=== PATIENT | male | born 1980 | race Caucasian/White ===

== ENCOUNTER 2018-04-19 11:43 | Emergency (ER) | payer OTHER ==
[2018-04-19 13:15] LABS: Protime INR 1.12
[2018-04-19 13:24] LABS: ALT/SGPT 265 U/L (12-78); AST/SGOT 112 U/L (15-37); Albumin 4.2 g/dL (3.4-5.0); Alkaline Phosphatase 53 U/L (45-117); BUN Blood Urea Nitrogen 12 mg/dL (7-18); Bicarbonate 28 mmol/L (21-32); Bilirubin Direct 0.2 mg/dL (0-0.2); Bilirubin Total 0.6 mg/dL (0.2-1.0); Glucose Level 94 mg/dL (74-106); Magnesium 2.4 mg/dL (1.8-2.4); NT PRO-BNP 128 pg/mL (<125); Potassium 3.8 mmol/L (3.5-5.1); Protein, Total 7.9 g/dL (6.4-8.2); Sodium Level 141 mmol/L (136-145); Troponin (Emerg Dept Use Only) < 0.02 ng/mL (0.0-0.045)
--- NOTE | 2018-04-19 13:28 | RAD REPORT ---
EXAM DESCRIPTION: Pa[facility] Single View04/19/2018 1:01 pm CLINICAL HISTORY: Chest pain COMPARISON: none FINDINGS: The lungs appear clear of acute infiltrate. The heart is normal size IMPRESSION: No acute abnormalities displayed
[2018-04-19 13:30] LABS: Absolute Lymphocytes (CBC) 1.4 K/uL (0.7-4.9); Absolute Monocytes 0.8 K/uL (0.1-1.3); Absolute Neutrophil 4.4 K/uL (1.8-8.0); Eosinophils % 1.8 % (0-4.4); Hematocrit 47.7 % (39.6-49.0); MPV 9.5 fL (7.6-11.3); Monocytes % 11.5 % (3.3-12.3); RBC Red Blood Cell Count 5.24 M/uL (4.33-5.43)
--- NOTE | 2018-04-19 14:17 | ER ---
Nurse's Notes [facility] Name: Chris Russ Jr Age: 37 yrs Sex: Male : 1980 Arrival Date: 04/19/2018 Time: 11:46 Bed 17 Private MD: Diagnosis: Essential (primary) hypertension;Tobacco abuse counseling;Tobacco use Presentation: 04/19 11:46 Presenting complaint: Patient states: i think my BP is high and i feel tingly on both hj arms; it started around ; went to [facility] a minute ago and it was a 150/100; denies headache, denies N/V; denies chest pain;. Transition of care: patient was not received from another setting of care. Onset of symptoms was April 19, 2018. Risk Assessment: Do you want to hurt yourself or someone else? Patient reports no desire to harm self or others. Initial Sepsis Screen: Does the patient meet any 2 criteria? No. Patient's initial sepsis screen is negative. Does the patient have a suspected source of infection? No. Patient's initial sepsis screen is negative. Care prior to arrival: None. 11:46 Method Of Arrival: Ambulatory 11:46 Acuity: HERIBERTO 3 hj Triage Assessment: 11:48 General: Appears in no apparent distress. uncomfortable, Behavior is calm, cooperative, hj appropriate for age. Pain: Denies pain. Historical: - Allergies: 11:48 No Known Allergies; hj - Home Meds: 11:48 None [Active]; hj - PMHx: 11:48 None; hj - PSHx: 11:48 None; hj - Immunization history:: Adult Immunizations not up to date. - Social history:: Smoking status: Patient uses tobacco products, Patient uses alcohol. - Ebola Screening: : Patient negative for fever greater than or equal to 101.5 degrees Fahrenheit, and additional compatible Ebola Virus Disease symptoms Patient denies exposure to infectious person Patient denies travel to an Ebola-affected area in the 21 days before illness onset. - Family history:: not pertinent. Screenin:49 Abuse screen: Denies threats or abuse. Denies injuries from another. Nutritional hj screening: No deficits noted. Tuberculosis screening: No symptoms or risk factors identified. Fall Risk None identified. Assessment: 12:20 General: Appears in no apparent distress. Behavior is calm, cooperative. Pain: Denies hb pain. Neuro: Level of Consciousness is awake, alert, obeys commands, Oriented to person, place, time, situation. Cardiovascular: Heart tones S1 S2 present Capillary refill < 3 seconds Patient's skin is warm and dry. Respiratory: Airway is patent Trachea midline Respiratory effort is even, unlabored, Respiratory pattern is regular, symmetrical, Breath sounds are clear bilaterally. GI: No signs and/or symptoms were reported involving the gastrointestinal system. : No signs and/or symptoms were reported regarding the genitourinary system. EENT: No signs and/or symptoms were reported regarding the EENT system. Derm: Skin is intact, is healthy with good turgor. Musculoskeletal: No signs and/or symptoms reported regarding the musculoskeletal system. 13:00 Reassessment: Patient appears in no apparent distress at this time. Patient and/or hb family updated on plan of care and expected duration. Pain level reassessed. Patient is alert, oriented x 3, equal unlabored respirations, skin warm/dry/pink. Patient denies pain at this time. 13:51 Reassessment: Patient appears in no apparent distress at this time. No changes from previously documented assessment. Patient and/or family updated on plan of care and expected duration. Pain level reassessed. Patient is alert, oriented x 3, equal unlabored respirations, skin warm/dry/pink. Vital Signs: 11:49 BP 144 / 106; Pulse 95; Resp 18; Temp 97.8(TE); Pulse Ox 98% on R/A; Weight 79.38 kg; Height 6 ft. 0 in. (182.88 cm); Pain 0/10; 12:45 BP 148 / 98; Pulse 88; Resp 16; Pulse Ox 100% on R/A; Pain 0/10; hb 11:49 Body Mass Index 23.73 (79.38 kg, 182.88 cm) ED Course: 11:46 Patient arrived in ED. rg4 11:47 Triage completed. 11:49 Arm band placed on left wrist. 11:49 Patient has correct armband on for positive identification. Bed in low position. Call light in reach. Side rails up X 1. 12:17 Hugh Robles MD is Attending Physician. [facility] 12:29 Leeanna Dunham, NEY is Primary Nurse. hb 12:50 Inserted saline lock: 20 gauge in right antecubital area, using aseptic technique. hb Blood collected. 12:59 X-ray completed. Portable x-ray completed in exam room. Patient tolerated procedure mh1 well. 13:02 XRAY Chest (1 view) In Process Unspecified. EDNE 14:16 Lloyd Madrid MD is Referral Physician. [facility] 14:17 Yeison Salinas MD is Referral Physician. [facility] 14:42 No provider procedures requiring assistance completed. IV discontinued, intact, hb bleeding controlled, No redness/swelling at site. Pressure dressing applied. Administered Medications: 14:35 Drug: Lisinopril 5 mg Route: PO; hb 14:42 Follow up: Response: Medication administered at discharge. hb Outcome: 14:16 Discharge ordered by . [facility] 14:42 Discharged to home ambulatory, with significant other. hb 14:42 Condition: stable 14:42 Discharge instructions given to patient, significant other, Instructed on discharge instructions, follow up and referral plans. medication usage, Demonstrated understanding of instructions, follow-up care, medications, Prescriptions given X 2. 14:43 Patient left the ED. hb Signatures: Dispatcher [employer] EDNE Hugh Robles MD MD cha Harvey, Martha 1 Greg Villasenor RN RN hj Baxter, Heather, RN RN hb Garcia, Rubi rg4 Corrections: (The following items were deleted from the chart) 11:48 11:46 Presenting complaint: Patient states: i think my BP is high and i feel tingly on hj both arms; it started around ; went to [facility] a minute ago and it was a 150/100; denies headache, denies N/V; hj 11:50 11:49 Pulse 95bpm; Resp 18bpm; Pulse Ox 98% RA; Temp 97.8F Temporal; 79.38 kg; Height 6 hj ft. 0 in.; BMI: 23.7; Pain 0/10; hj 12:19 11:46 Acuity: HERIBERTO 4 hj hj
--- NOTE | 2018-04-19 14:18 | EDPHYS ---
Physician Documentation [facility] Name: Chris Russ Jr Age: 37 yrs Sex: Male : 1980 Arrival Date: 04/19/2018 Time: 11:46 Bed 17 Private MD: ED Physician Hugh Robles HPI: 04/19 13:04 This 37 yrs old Male presents to ER via Ambulatory with complaints of High shannan Blood Pressure. 13:04 The patient has elevated blood pressure and discovered this at home. Onset: The shanann symptoms/episode began/occurred 7 day(s) ago. Modifying factors: The symptoms are aggravated by activity, The symptoms are alleviated by remaining still. Associated signs and symptoms: The patient has no apparent associated signs or symptoms. Severity of symptoms: At its worst the blood pressure was mild, in the emergency department the blood pressure is unchanged. The patient has not experienced similar symptoms in the past. Historical: - Allergies: 11:48 No Known Allergies; hj - Home Meds: 11:48 None [Active]; hj - PMHx: 11:48 None; hj - PSHx: 11:48 None; hj - Immunization history:: Adult Immunizations not up to date. - Social history:: Smoking status: Patient uses tobacco products, Patient uses alcohol. - Ebola Screening: : Patient negative for fever greater than or equal to 101.5 degrees Fahrenheit, and additional compatible Ebola Virus Disease symptoms Patient denies exposure to infectious person Patient denies travel to an Ebola-affected area in the 21 days before illness onset. - Family history:: not pertinent. ROS: 13:04 Constitutional: Negative for fever, chills, and weight loss, Eyes: Negative for injury, shannan pain, redness, and discharge, ENT: Negative for injury, pain, and discharge, Neck: Negative for injury, pain, and swelling, Cardiovascular: Negative for chest pain, palpitations, and edema, Respiratory: Negative for shortness of breath, cough, wheezing, and pleuritic chest pain, Abdomen/GI: Negative for abdominal pain, nausea, vomiting, diarrhea, and constipation, Back: Negative for injury and pain, : Negative for injury, bleeding, discharge, and swelling, MS/Extremity: Negative for injury and deformity, Skin: Negative for injury, rash, and discoloration, Neuro: Negative for headache, weakness, numbness, tingling, and seizure, Psych: Negative for depression, anxiety, suicide ideation, homicidal ideation, and hallucinations, Allergy/Immunology: Negative for hives, rash, and allergies, Endocrine: Negative for neck swelling, polydipsia, polyuria, polyphagia, and marked weight changes, Hematologic/Lymphatic: Negative for swollen nodes, abnormal bleeding, and unusual bruising. Exam: 13:04 Constitutional: This is a well developed, well nourished patient who is awake, alert, shannan and in no acute distress. Head/Face: Normocephalic, atraumatic. Eyes: Pupils equal round and reactive to light, extra-ocular motions intact. Lids and lashes normal. Conjunctiva and sclera are non-icteric and not injected. Cornea within normal limits. Periorbital areas with no swelling, redness, or edema. ENT: Nares patent. No nasal discharge, no septal abnormalities noted. Tympanic membranes are normal and external auditory canals are clear. Oropharynx with no redness, swelling, or masses, exudates, or evidence of obstruction, uvula midline. Mucous membranes moist. Neck: Trachea midline, no thyromegaly or masses palpated, and no cervical lymphadenopathy. Supple, full range of motion without nuchal rigidity, or vertebral point tenderness. No Meningismus. Chest/axilla: Normal chest wall appearance and motion. Nontender with no deformity. No lesions are appreciated. Cardiovascular: Regular rate and rhythm with a normal S1 and S2. No gallops, murmurs, or rubs. Normal PMI, no JVD. No pulse deficits. Respiratory: Lungs have equal breath sounds bilaterally, clear to auscultation and percussion. No rales, rhonchi or wheezes noted. No increased work of breathing, no retractions or nasal flaring. Abdomen/GI: Soft, non-tender, with normal bowel sounds. No distension or tympany. No guarding or rebound. No evidence of tenderness throughout. Back: No spinal tenderness. No costovertebral tenderness. Full range of motion. Male : Normal genitalia with no discharge or lesions. Skin: Warm, dry with normal turgor. Normal color with no rashes, no lesions, and no evidence of cellulitis. MS/ Extremity: Pulses equal, no cyanosis. Neurovascular intact. Full, normal range of motion. Neuro: Awake and alert, GCS 15, oriented to person, place, time, and situation. Cranial nerves II-XII grossly intact. Motor strength 5/5 in all extremities. Sensory grossly intact. Cerebellar exam normal. Normal gait. Psych: Awake, alert, with orientation to person, place and time. Behavior, mood, and affect are within normal limits. Vital Signs: 11:49 BP 144 / 106; Pulse 95; Resp 18; Temp 97.8(TE); Pulse Ox 98% on R/A; Weight 79.38 kg; hj Height 6 ft. 0 in. (182.88 cm); Pain 0/10; 12:45 BP 148 / 98; Pulse 88; Resp 16; Pulse Ox 100% on R/A; Pain 0/10; hb 11:49 Body Mass Index 23.73 (79.38 kg, 182.88 cm) hj MDM: 12:17 Patient medically screened. [facility] 13:04 Data reviewed: vital signs, nurses notes, lab test result(s), EKG, radiologic studies, shannan plain films. 04/19 12:18 Order name: Basic Metabolic Panel [facility] 04/19 12:18 Order name: CBC with Diff [facility] 04/19 12:18 Order name: LFT's [facility] 04/19 12:18 Order name: Magnesium; Complete Time: 14:15 [facility] 04/19 12:18 Order name: NT PRO-BNP; Complete Time: 14:15 [facility] 04/19 12:18 Order name: PT-INR; Complete Time: 14:15 [facility] 04/19 12:18 Order name: Troponin (emerg Dept Use Only); Complete Time: 14:15 [facility] 04/19 12:18 Order name: XRAY Chest (1 view); Complete Time: 14:15 [facility] 04/19 12:18 Order name: Urine Culture [facility] 04/19 12:19 Order name: Basic Metabolic Panel; Complete Time: 14:15 [facility] 04/19 12:19 Order name: CBC with Automated Diff; Complete Time: 14:15 [facility] 04/19 12:19 Order name: Liver (Hepatic) Function; Complete Time: 14:15 [facility] 04/19 13:05 Order name: Urine Dipstick--Ancillary (enter results) 04/19 12:18 Order name: EKG; Complete Time: 12:19 [facility] 04/19 12:18 Order name: Cardiac monitoring; Complete Time: 12:54 [facility] 04/19 12:18 Order name: EKG - Nurse/Tech; Complete Time: 12:41 [facility] 04/19 12:18 Order name: IV Saline Lock; Complete Time: 12:54 [facility] 04/19 12:18 Order name: Labs collected and sent; Complete Time: 12:54 [facility] 04/19 12:18 Order name: O2 Per Protocol; Complete Time: 12:54 [facility] 04/19 12:18 Order name: O2 Sat Monitoring; Complete Time: 12:54 [facility] 04/19 12:18 Order name: Urine Dipstick-Ancillary (obtain specimen); Complete Time: 12:54 [facility] Administered Medications: 14:35 Drug: Lisinopril 5 mg Route: PO; hb 14:42 Follow up: Response: Medication administered at discharge. hb Disposition: 04/19/18 14:16 Discharged to Home. Impression: Essential (primary) hypertension, Tobacco abuse counseling, Tobacco use. - Condition is Stable. - Discharge Instructions: Hypertension, Smoking Hazards, Hypertension, [id number], How to Take Your Blood Pressure, [id number]-[id number], Aspirin and Your Heart, Managing Your Hypertension. - Prescriptions for Lisinopril 5 mg Oral Tablet - take 1 tablet by ORAL route once daily; 20 tablet. - Medication Reconciliation Form, Thank You Letter, Antibiotic Education, Prescription Opioid Use form. - Follow up: Private Physician; When: 2 - 3 days; Reason: Recheck today's complaints, Continuance of care, Re-evaluation by your physician. Follow up: Lloyd Madrid; When: 2 - 3 days; Reason: Recheck today's complaints, Re-evaluation by your physician. Follow up: Yeison Salinas MD; When: 5 - 6 days; Reason: Recheck today's complaints, Re-evaluation by your physician. - Problem is new. - Symptoms have improved. Signatures: Dispatcher [employer] EDMS Hugh Robles MD MD cha Joaquin, Henry, RN RN Leeanna Lind RN RN Corrections: (The following items were deleted from the chart) 14:17 14:16 04/19/2018 14:16 Discharged to Home. Impression: Essential (primary) [facility] hypertension; Tobacco abuse counseling; Tobacco use. Condition is Stable. Discharge Instructions: Hypertension, Hypertension, [id number], How to Take Your Blood Pressure, [id number], Aspirin and Your Heart, Managing Your Hypertension. Prescriptions for Lisinopril 5 mg Oral Tablet - take 1 tablet by ORAL route once daily; 20 tablet. and Forms are Medication Reconciliation Form, Thank You Letter, Antibiotic Education, Prescription Opioid Use. Follow up: Private Physician; When: 2 - 3 days; Reason: Recheck today's complaints, Continuance of care, Re-evaluation by your physician. Follow up: Lloyd Madrid; When: 2 - 3 days; Reason: Recheck today's complaints, Re-evaluation by your physician. Problem is new. Symptoms have improved. shannan 14:43 14:17 04/19/2018 14:16 Discharged to Home. Impression: Essential (primary) hb hypertension; Tobacco abuse counseling; Tobacco use. Condition is Stable. Discharge Instructions: Hypertension, Hypertension, [id number], How to Take Your Blood Pressure, [id number], Aspirin and Your Heart, Managing Your Hypertension, Smoking Hazards. Prescriptions for Lisinopril 5 mg Oral Tablet - take 1 tablet by ORAL route once daily; 20 tablet. and Forms are Medication Reconciliation Form, Thank You Letter, Antibiotic Education, Prescription Opioid Use. Follow up: Private Physician; When: 2 - 3 days; Reason: Recheck today's complaints, Continuance of care, Re-evaluation by your physician. Follow up: Lloyd Madrid; When: 2 - 3 days; Reason: Recheck today's complaints, Re-evaluation by your physician. Follow up: Yeison Salinas; When: 5 - 6 days; Reason: Recheck today's complaints, Re-evaluation by your physician. Problem is new. Symptoms have improved. shannan
[2018-04-19] MEDS ORDERED: LISINOPRIL 5 MG TAB ONE (14:44)
--- NOTE | 2018-04-19 15:07 | EKG ---
Test Date: 2018-04-19 Test Time: 12:36:06 Color Coater: JOHN MEASUREMENT RESULTS: Intervals: Rate: 82 OK: 120 QRSD: 96 QT: 374 QTc: 436 Leland: P: 57 OK: 120 QRS: 41 T: 33 INTERPRETIVE STATEMENTS: Normal sinus rhythm Normal ECG No previous ECG available for comparison Electronically Signed On 04-19-18 15:06:05 [employer] by Thom Schuler
[2018-04-19 15:42] LABS: Urine Blood NEGATIVE (NEG); Urine Glucose NEGATIVE (NEG); Urine Protein NEGATIVE (NEG); Urine Specific Gravity 1.015 (1.005-1.030); Urine pH 8.5 (5.0-7.0)
== END 2018-04-19 14:43 | disposition home or self-care (01) ==
LOC: ER 11:43
DX: I10 Essential (primary) hypertension (principal); Z72.0 Tobacco use; Z71.6 Tobacco abuse counseling
CPT/HCPCS: 36415; 71045; 80048; 80076; 81003; 83735; 83880; 84484; 85025; 85610; 87086; 87088; 93005; 99284